=== PATIENT | female | born 1990 | race African-American/Black ===

== ENCOUNTER 2018-06-08 08:51 | Emergency (ER) | payer MEDICAID, SELFPAY ==
--- NOTE | 2018-06-08 10:04 | RAD ---
RIGHT ANKLE 3 VIEWS: HISTORY: Injury, right ankle pain. FINDINGS: No fracture or dislocation is seen. The ankle mortise is maintained. Soft tissue swelling is presen t. POS: H
== END 2018-06-08 10:10 | disposition home or self-care (01) ==
LOC: ERS 08:51
DX: S93.401A Sprain of unspecified ligament of right ankle, initial encounter (principal); I10 Essential (primary) hypertension; W01.0XXA Fall on same level from slipping, tripping and stumbling without subsequent striking against object, initial encounter

== ENCOUNTER 2019-01-28 20:40 | Emergency (ER) | payer MEDICAID, OTHER, SELFPAY ==
[2019-01-28] MEDS ORDERED: Ibuprofen 800 MG TAB ONE (20:54)
--- NOTE | 2019-01-28 21:05 | RAD ---
EXAM: Chest one view: HISTORY: Chest pain COMPARISON: 07/09/2016 FINDINGS: Heart size: Cardiomegaly The lungs: Clear of acute process. No evidence for pneumonia, pleural effusion, acute edema, or pneumothorax, or other significant acute process. IMPRESSION: Cardiomegaly minimally more prominent than prior study. No evidence for other acute process.
[2019-01-28 21:32] LABS: Hemoglobin 10.9 g/dL (12.0-16.0); Mean Corpuscular HGB CONC 32.7 g/dL (32.0-36.0); Mean Corpuscular Hemoglobin 28.9 pg (27.0-31.0); Mean Corpuscular Volume 88.2 fL (78.0-98.0); Mean Platelet Volume 8.6 fL (7.4-10.4); Platelet Count 312 thou/uL (130-400); RBC Distribution Width 14.3 % (11.5-14.5); Red Blood Cell (RBC) Count 3.78 mill/uL (4.20-5.40); White Blood Cell (WBC) Count 11.5 thou/uL (4.8-10.8)
[2019-01-28 21:45] LABS: BHCG - Serum Negative (NEGATIVE); Pregs Control Background? CLEAR/WHITE (CLR/WHITE); Pregs Control Bar Appear? YES (CONTROL BAR)
[2019-01-28 21:47] LABS: #Basophils 0.2 thou/uL (0.0-0.2); #Eosinphils 0.2 thou/uL (0.0-0.7); #Lymphocytes 5.3 thou/uL (1.20-3.40); #Monocytes 0.5 thou/uL (0.11-0.59); #Neutrophils 5.2 thou/uL (1.40-6.50); %Basophils 1.9 % (0.0-1.0); %Eosinophils 1.9 % (0.0-10.0); %Lymphocytes 46.4 % (21.0-51.0); %Monocytes 4.3 % (0.0-10.0); %Neutrophils 45.6 % (42.0-75.0); Platelet Morphology Comment Appears Adequate; RBC Morphology Normal
[2019-01-28 21:53] LABS: ALT (SGPT) 11 U/L (8-55); AST (SGOT) 18 U/L (5-34); Albumin 3.7 g/dL (3.5-5.0); Alkaline Phosphatase 84 U/L (40-150); Anion Gap 12 mmol/L (10-20); BUN (Urea Nitrogen) 9 mg/dL (7.0-18.7); Bilirubin, Total 0.2 mg/dL (0.2-1.2); CK (CPK) 96 U/L (29-168); Calc. Creatinine Clearance 0 mL/min (70-130); Calcium 9.1 mg/dL (7.8-10.44); Carbon Dioxide 25 mmol/L (22-29); Chloride 103 mmol/L (98-107); Estimated GFR-MDRD Greater than 90; Globulin 3.7 g/dL (2.4-3.5); Glucose 91 mg/dL (70-105); Lipase 12 U/L (8-78); Potassium 3.3 mmol/L (3.5-5.1); Protein, Total 7.4 g/dL (6.0-8.3); Sodium 137 mmol/L (136-145)
[2019-01-29 01:29] LABS: Troponin I Less than 0.010 ng/mL (< 0.028)
== END 2019-01-29 01:35 | disposition home or self-care (01) ==
LOC: ERS 20:40
DX: F41.9 Anxiety disorder, unspecified (principal); R07.9 Chest pain, unspecified; I10 Essential (primary) hypertension; F32.9 Major depressive disorder, single episode, unspecified; Z79.899 Other long term (current) drug therapy
CPT/HCPCS: 36415; 71045; 80053; 82550; 83690; 84484; 84703; 85025; 93005

== ENCOUNTER 2019-07-23 09:32 | Day surgery (SDC) | payer OTHER ==
[2019-07-23] MEDS ORDERED: Ferumoxytol (NON ERSD) 510 MG in Sodium Chloride 0.9% 150 ML IVPB SCH (09:45)
[2019-07-23] MEDS ORDERED: Sodium Chloride 0.9% 20 ML ONE (09:45)
[2019-07-23 10:39] VITALS: BP 136/70; TEMP 98.7
== END 2019-07-23 11:30 | disposition home or self-care (01) ==
LOC: ONC/OP 09:32
PROVIDERS: ATTEND Internal Medicine Hematology & Oncology
DX: D50.0 Iron deficiency anemia secondary to blood loss (chronic) (principal)
CPT/HCPCS: 96365; J3490; Q0138

== ENCOUNTER 2019-07-30 09:42 | Day surgery (SDC) | payer OTHER ==
[~2019-07-30 09:42] MED LIST: Ferumoxytol (ERSD) 510 MG in Sodium Chloride 0.9% 250 ML 150 ML IVPB SCH
[2019-07-30 10:54] VITALS: BP 140/73; TEMP 98.5
[2019-07-30] MEDS ORDERED: Sodium Chloride 0.9% 20 ML ONE (11:41)
== END 2019-07-30 12:11 | disposition home or self-care (01) ==
LOC: ONC/OP 09:42
PROVIDERS: ATTEND Internal Medicine Hematology & Oncology
DX: D50.0 Iron deficiency anemia secondary to blood loss (chronic) (principal)
CPT/HCPCS: 96365; J7050; Q0139

== ENCOUNTER 2019-08-06 10:00 | Day surgery (SDC) | payer OTHER ==
[2019-08-06] MEDS ORDERED: Sodium Chloride 0.9% 20 ML ONE (13:29)
[2019-08-06 14:02] VITALS: BP 162/79; TEMP 98.4
== END 2019-08-06 14:03 | disposition home or self-care (01) ==
LOC: ONC/OP 10:00
PROVIDERS: ATTEND Internal Medicine Hematology & Oncology
DX: D50.0 Iron deficiency anemia secondary to blood loss (chronic) (principal)
CPT/HCPCS: 96365; J7050; Q0139